=== PATIENT | male | born 1935 | race African-American/Black ===

== ENCOUNTER 2016-09-30 06:26 | Day surgery (SDC) | payer OTHER ==
[~2016-09-30] VITALS: Ht 170.2 cm; Wt 80.9 kg
--- NOTE | ~2016-09-30 | EKG ---
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
--- NOTE | ~2016-09-30 | P ---
[facility] [address] PROCEDURE REPORT Name: VASU ARRINGTON Room #: 150-9 [facility] M.R.#: [id number] Admission: 09/30/16 Attend Phys: Alessandro Collado MD Discharge: Date of : 39 Report #: [id number] THIS REPORT FOR: //name// CC: Colin Collado DATE OF SERVICE: 09/30/2016 PROCEDURE: Fiberoptic bronchoscopy with transbronchial needle aspirate of level 7 lymph node using endobronchial ultrasound guidance as well as brush cytology specimens from the right middle lobe as well as lavage from the right middle lobe. INDICATION: Right middle lobe nodule and abnormal adenopathy. PROCEDURE NOTATION: After discussing risks and benefits of planned procedure with the patient, he desired to proceed. After obtaining informed consent, the patient was already in OR room 2 and on general endotracheal anesthesia. Please see anesthesia notes for details on anesthesia. The endobronchial ultrasound device was passed through an 8.5 endotracheal tube until the distal trachea was seen. Using the standard procedure, all lymph node areas were evaluated. Significant findings included a 4 mm 4R lymph node and 4 mm 4L lymph node, a 4 mm 11L and a 9 mm level 7. Attempts to evaluate an area near the right upper lobe bronchus where a small lymph node may have been seen on CT, it was difficult to evaluate with the ultrasound device due to the size of the scope and the size of the airway was not compatible. However, level 7 lymph node noted distally along the right main stem bronchus was seen, it was 9 mm. This was sampled using 22-gauge fine needle aspirate and ultrasound guidance. Five aspirates were performed. Rapid pathology did confirm lymph node tissue with a final pathology pending. The endobronchial ultrasound scope was then removed. The white light bronchoscope was then inserted and the airways were surveyed. FINDINGS: The mainstem, lobar, segmental and subsegmental bronchi were all explored and appeared patent with no significant anatomic variation in the disease. The right middle lobe, however was accessed and using fluoroscopy guidance, several brushings were obtained in the area of nodule. The nodule was not clearly visible on fluoroscopy because of its small size. Therefore only random brushes in the area of the nodule were performed. Transbronchial biopsies were not performed due to the inability to see the nodule on fluoroscopy. A lavage was then performed in this area at the end of procedure. The patient tolerated it well with no noted complications. [address] [address] PROCEDURE REPORT Name: VASU ARRINGTON Room #: 150-9 [facility] M.R.#: [id number] Admission: 09/30/16 Attend Phys: Alessandro Collado MD Discharge: Date of : 39 Report #: [id number] SUGGESTION: Awaiting pathology. By: 1430 29 Alessandro Collado MD /nt
--- NOTE | ~2016-09-30 | CNG ---
[facility] [place] [address] CYTO-NONGYN REPORT PROCEDURE Name: VASU ARRINGTON Room #: DEP [facility] M.R.#: [id number] Admission: 09/30/16 Date of : 39 Discharge: 09/30/16 Report #: [id number] Path Case #: [id number] CYTOPATHOLOGY REPORT COLLECTION DATE: 09/30/2016 RECEIVED DATE: 09/30/2016 SUBMITTING PHYS: Dr. Alessandro Collado OTHER PHYS: Dr. Colin Carrillo CLINICAL HISTORY: Pulmonary nodules; lung mass PROCEDURE: One pass performed by Dr. Collado yielding 0.2 ml fluid. Two H and E slides 15 mL from needle rinsed in formalin were submitted to the lab. SPECIMEN(S) RECEIVED: A.EBUS guided Fine needle aspiration, lymph node 7 B.Bronchial brushings, RML C.Bronchial brush rinse, RML D.Bronchoalveolar lavage, RML * * * * * * * * * * * * FINAL DIAGNOSIS: A. Lymph node, lymph node 7, EBUS guided fine needle aspiration: - Negative for malignancy. - Lymphoid tangles and abundant fragments consistent with aspiration of a lymph node. - Fragments of benign cartilage present. B. Lung, right middle lobe, bronchial brushings: - No malignant cells present. - Numerous bronchial epithelial cells identified with air drying artifact and poor cell preservation. C. Bronchial brush rinse: - No malignant cells present. - Numerous bronchial epithelial cells present. D. Lung, right middle lobe, bronchoalveolar lavage: - No malignant cells present. - Bronchial epithelial cells, alveolar macrophages, and inflammatory cells present. COMMENT: Immunohistochemical stains are performed on the cell block of Part A (lymph node 7 EBUS FNA). TTF-1: non-reactive CD45: strong reactivity present consistent with lymphocytes AE1/AE3: negative for malignant epithelial cells (IUV:mgr; d/t: 10/04/16) PATHOLOGIST: Earnestine Garza M.D. [facility] [address] [place] [address] CYTO-NONGYN REPORT PROCEDURE Name: VICTORINA ARRINGTONER DENNIS Room #: [facility].#: [id number] Admission: 09/30/16 Date of : 39 Discharge: 09/30/16 Report #: [id number] Path Case #: [id number] REPORT ELECTRONICALLY SIGNED BY: Earnestine Garza M.D. DATE/TIME: 10/04/2016 14:07 * * * * * * * * * * * * GROSS PATHOLOGY: A. EBUS guided Fine needle aspiration, lymph node 7: The specimen is labeled "[place]ipps, [place]" and consists of two H and E slides. Fifteen mL of red fluid in formalin from the needle rinse is also submitted and a cell block was prepared from this material. (09/30) B. Bronchial brushings, RML: The specimen is labeled "Shipps, [place]" and consists of seven fixed slides. C. Bronchial brush rinse, RML: The specimen is labeled "Shipps, Vasu" and consists of a brush tip in fixative. One ThinPrep slide was prepared. D. Bronchoalveolar lavage, RML: The specimen is submitted unfixed, labeled "Vasu Arrington". Received by the Cytology Department is 10 mL of clear colorless fluid. One ThinPrep slide was prepared. (clt 10.03.2016) IMMEDIATE EVALUATION: EBUS guided FNA lymph node [address] Phillips: Few lymphocytes and epithelioid cells present. Professional testing performed by [facility] at [facility] [address] [place] [address] DEMAND PLANNER(S): DESIREE Barry(ASCP), [facility] INITIAL CPT CODE(S): A; 06808, 07839, 12240, 61632, 81707, 81780 B; 51643 C; 48149 D; 94172 Professional services performed by [facility] at [facility] [address] [place] [address] [facility] by [facility] at [address] [place] [address], [address], [place] [address]. [facility] [address] [place] [address], [address] [place] [address] PHONE: [phone] [address] CYTO-NONGYN REPORT PROCEDURE Name: VASU ARRINGTONONY Room #: DEP [facility] M.R.#: [id number] Admission: 09/30/16 Date of : 39 Discharge: 09/30/16 Report #: [id number] Path Case #: [id number] DIRECTOR: Leonides Ramos M.D. * * * END OF REPORT * * *
[~2016-09-30 06:26] MED LIST: ASPIR 8181 MG PO; CO Q-10100 MG PO; JANUVIA100 MG PO; METFORMIN PO; ZESTRIL40 MG PO
[2016-09-30 12:55] VITALS: BP 140/68
[2016-09-30 15:11] VITALS: BP 140/68
== END 2016-09-30 16:05 | disposition home or self-care (01) ==
LOC: OR 06:26 → TBA 06:26 → OR 09:22
DX: R91.1 Solitary pulmonary nodule (principal)
CPT/HCPCS: 50010; 70005